=== PATIENT | female | born 1970 | race African-American/Black ===

== ENCOUNTER 2017-07-01 22:43 | Emergency (ER) | payer MEDICARE, OTHER ==
[2017-07-02 01:52] LABS: URINE PH (Dip) POC 7.5 (5.0-8.5)
[2017-07-02 01:52] LABS: URINE BLOOD (Dip) POC Trace-intact (NEGATIVE); URINE KETONES (Dip) POC 1+ (NEGATIVE); URINE LEUKOCYTE EST (Dip) POC 1+ (NEGATIVE); URINE NITRITE (Dip) POC Negative (NEGATIVE); URINE TOTAL PROTEIN POC Trace (NEGATIVE)
[2017-07-02 02:24] LABS: ADD MAN DIFF? NO
[2017-07-02 02:27] LABS: BASOPHILS % 0.4 % (0.0-2.0); EOSINOPHILS # 0.2 10^3/ul (0.0-0.5); EOSINOPHILS % 1.9 % (0.0-7.0); HEMATOCRIT 40.8 % (37.0-47.0); HEMOGLOBIN 13.5 g/dl (12.0-16.0); LYMPHOCYTES # 3.7 10^3/ul (0.8-2.9); LYMPHOCYTES % 32.7 % (15.0-51.0); MEAN CORPUSCULAR HEMOGLOBIN 29.3 pg (29.0-33.0); MEAN CORPUSCULAR HGB CONC 33.1 g/dl (32.0-37.0); MEAN CORPUSCULAR VOLUME 88.7 fl (82.0-101.0); MEAN PLATELET VOLUME 9.7 fl (7.4-10.4); MONOCYTE # 0.7 10^3/ul (0.3-0.9); MONOCYTES % 6.4 % (0.0-11.0); NEUTROPHIL # 6.6 10^3/ul (1.6-7.5); NEUTROPHILS % 58.2 % (39.0-77.0); PLATELET COUNT 372 10^3/UL (140-415); RED CELL DISTRIBUTION WIDTH 12.5 % (11.5-14.5)
[2017-07-02 02:27] LABS: WHITE BLOOD COUNT 11.4 10^3/ul (4.8-10.8)
[2017-07-02 02:30] LABS: ADD UMIC YES; UR ASCORBIC ACID NEGATIVE (NEGATIVE); UR BILIRUBIN (Dip) NEGATIVE (NEGATIVE); UR BLOOD (Dip) NEGATIVE (NEGATIVE); UR CLARITY CLEAR (CLEAR); UR COLOR YELLOW (YELLOW); UR GLUCOSE (Dip) 3+ mg/dL (NEGATIVE); UR KETONES (Dip) TRACE mg/dL (NEGATIVE); UR LEUKOCYTE ESTERASE (Dip) 3+ Leu/ul (NEGATIVE); UR NITRITE (Dip) NEGATIVE (NEGATIVE); UR RBC 4 /HPF (0-5); UR SPECIFIC GRAVITY (Dip) 1.033 (1.003-1.030); UR SQUAMOUS EPITHELIAL CELL FEW /HPF (FEW); UR TOTAL PROTEIN (Dip) NEGATIVE (NEGATIVE); UR UROBILINOGEN (Dip) NEGATIVE (NEGATIVE); UR WBC 32 /HPF (0-5)
[2017-07-02] MEDS: AMOXICILLIN/CLAV 875 MG TAB PO (02:30)
[2017-07-02 02:33] LABS: AMPHETAMINE/METHAMPHETAMINE Positive (NEGATIVE); BARBITURATES Negative (NEGATIVE); BENZODIAZEPINES Negative (NEGATIVE); CANNABINOIDS Negative (NEGATIVE); COCAINE Negative (NEGATIVE); OPIATES Negative (NEGATIVE)
[2017-07-02 02:57] LABS: ALANINE AMINOTRANSFERASE 18 IU/L (13-69); ALBUMIN 4.4 g/dl (3.3-4.9); ALBUMIN/GLOBULIN RATIO 1.22; ALKALINE PHOSPHATASE 136 IU/L (42-121); ANION GAP 15 (8-16); ASPARTATE AMINO TRANSFERASE 16 IU/L (15-46); BILIRUBIN,INDIRECT 0.2 mg/dl (0-1.1); BILIRUBIN,TOTAL 0.2 mg/dl (0.2-1.3); BLOOD UREA NITROGEN 8 mg/dl (7-20); CALCIUM 9.5 mg/dl (8.4-10.2); CARBON DIOXIDE 32 mmol/L (21-31); CHLORIDE 96 mmol/L (97-110); CREATININE 0.59 mg/dl (0.44-1.00); ETHANOL < 10.0 mg/dl; POTASSIUM 4.3 mmol/L (3.5-5.1); SODIUM 139 mmol/L (135-144)
[2017-07-02 03:04] LABS: GLUCOSE 447 mg/dl (70-220)
[2017-07-02] MEDS: INSULIN LISPRO 100 UNIT/ML VIAL SC (03:58)
[2017-07-02] MEDS: LORAZEPAM 1 MG TAB PO (06:21)
[2017-07-02] MEDS: HALOPERIDOL 5 MG TAB PO (06:21)
== END 2017-07-02 08:18 | disposition home or self-care (01) ==
LOC: E/R 22:43
DX: K02.9 Dental caries, unspecified (principal); F88 Other disorders of psychological development; E11.65 Type 2 diabetes mellitus with hyperglycemia; Z79.4 Long term (current) use of insulin; Z79.84 Long term (current) use of oral hypoglycemic drugs; Z87.891 Personal history of nicotine dependence
CPT/HCPCS: 36415; 80053; 80306; 80307; 81001; 81003; 81025; 82962; 85025; 96372; 99284-25

== ENCOUNTER 2017-07-13 11:57 | Emergency (ER) | payer MEDICARE, OTHER ==
[2017-07-13 12:42] LABS: URINE BLOOD (Dip) POC Negative (NEGATIVE); URINE KETONES (Dip) POC Negative (NEGATIVE); URINE LEUKOCYTE EST (Dip) POC Negative (NEGATIVE); URINE NITRITE (Dip) POC Negative (NEGATIVE); URINE TOTAL PROTEIN POC Negative (NEGATIVE)
[2017-07-13 12:42] LABS: URINE PH (Dip) POC 5.5 (5.0-8.5)
[2017-07-13 12:52] LABS: ADD MAN DIFF? NO
[2017-07-13 12:54] LABS: WHITE BLOOD COUNT 7.4 10^3/ul (4.8-10.8)
[2017-07-13 12:54] LABS: BASOPHILS % 0.3 % (0.0-2.0); EOSINOPHILS # 0.1 10^3/ul (0.0-0.5); EOSINOPHILS % 1.6 % (0.0-7.0); HEMATOCRIT 42.7 % (37.0-47.0); LYMPHOCYTES # 2.6 10^3/ul (0.8-2.9); MEAN CORPUSCULAR HEMOGLOBIN 29.1 pg (29.0-33.0); MEAN CORPUSCULAR HGB CONC 32.8 g/dl (32.0-37.0); MEAN CORPUSCULAR VOLUME 88.8 fl (82.0-101.0); MEAN PLATELET VOLUME 9.5 fl (7.4-10.4); MONOCYTE # 0.4 10^3/ul (0.3-0.9); MONOCYTES % 5.7 % (0.0-11.0); NEUTROPHIL # 4.2 10^3/ul (1.6-7.5); NEUTROPHILS % 57.1 % (39.0-77.0); PLATELET COUNT 372 10^3/UL (140-415); RED BLOOD COUNT 4.81 10^6/ul (4.20-5.40); RED CELL DISTRIBUTION WIDTH 12.4 % (11.5-14.5)
[2017-07-13 13:04] LABS: ADD UMIC YES; UR ASCORBIC ACID NEGATIVE (NEGATIVE); UR BILIRUBIN (Dip) NEGATIVE (NEGATIVE); UR BLOOD (Dip) NEGATIVE (NEGATIVE); UR CLARITY CLEAR (CLEAR); UR COLOR STRAW (YELLOW); UR GLUCOSE (Dip) 3+ mg/dL (NEGATIVE); UR KETONES (Dip) NEGATIVE (NEGATIVE); UR LEUKOCYTE ESTERASE (Dip) 1+ Leu/ul (NEGATIVE); UR NITRITE (Dip) NEGATIVE (NEGATIVE); UR RBC 1 /HPF (0-5); UR SPECIFIC GRAVITY (Dip) 1.032 (1.003-1.030); UR SQUAMOUS EPITHELIAL CELL FEW /HPF (FEW); UR TOTAL PROTEIN (Dip) NEGATIVE (NEGATIVE); UR UROBILINOGEN (Dip) NEGATIVE (NEGATIVE); UR WBC 1 /HPF (0-5)
[2017-07-13 13:11] LABS: ACETAMINOPHEN < 10.0 ug/ml (10.0-30.0); ALANINE AMINOTRANSFERASE 19 IU/L (13-69); ALBUMIN 4.5 g/dl (3.3-4.9); ALBUMIN/GLOBULIN RATIO 1.32; ALKALINE PHOSPHATASE 127 IU/L (42-121); ANION GAP 15 (8-16); ASPARTATE AMINO TRANSFERASE 17 IU/L (15-46); BILIRUBIN,INDIRECT 0.4 mg/dl (0-1.1); BILIRUBIN,TOTAL 0.4 mg/dl (0.2-1.3); BLOOD UREA NITROGEN 10 mg/dl (7-20); CALCIUM 9.7 mg/dl (8.4-10.2); CARBON DIOXIDE 27 mmol/L (21-31); CHLORIDE 97 mmol/L (97-110); CREATININE 0.63 mg/dl (0.44-1.00); ETHANOL < 10.0 mg/dl; POTASSIUM 5.3 mmol/L (3.5-5.1); SALICYLATE < 1.0 mg/dl (5.0-30.0); SODIUM 134 mmol/L (135-144); TOTAL PROTEIN 7.9 g/dl (6.1-8.1)
[2017-07-13 13:14] LABS: GLUCOSE 595 mg/dl (70-220)
[2017-07-13 13:19] LABS: AMPHETAMINE/METHAMPHETAMINE Positive (NEGATIVE); BARBITURATES Negative (NEGATIVE); BENZODIAZEPINES Negative (NEGATIVE); CANNABINOIDS Negative (NEGATIVE); COCAINE Negative (NEGATIVE); OPIATES Negative (NEGATIVE)
[2017-07-13] MEDS: SOD CHLORIDE 0.9% 2,000 ML IV (14:03)
[2017-07-13 14:08] LABS: AADO2 Venous 73.2 mmHg; MODE ROOM AIR; MetHgb Venous 1.9 %; Sample Type Blood venous; Site OTHER; Venous COHb 0.8 %; Venous Fraction OxyHgb 19.2 %; Venous Oxygen Sat 19.7 mmHG (55.0-75.0); Venous Total Hemglobin 14.3 g/dl
[2017-07-13] MEDS: INSULIN LISPRO 100 UNIT/ML VIAL SC (20:38)
[2017-07-13 22:13] LABS: ANION GAP 11 (8-16); BLOOD UREA NITROGEN 10 mg/dl (7-20); CALCIUM 8.6 mg/dl (8.4-10.2); CARBON DIOXIDE 26 mmol/L (21-31); CHLORIDE 105 mmol/L (97-110); CREATININE 0.57 mg/dl (0.44-1.00); GLUCOSE 320 mg/dl (70-220); POTASSIUM 3.8 mmol/L (3.5-5.1); SODIUM 138 mmol/L (135-144)
[2017-07-13] MEDS: RISPERIDONE 0.25 MG TAB PO (23:03)
[2017-07-13] MEDS: LORAZEPAM 1 MG TAB PO (23:03)
[2017-07-14] MEDS: RISPERIDONE 0.25 MG TAB PO ×2 (09:40→20:58)
[2017-07-14] MEDS ORDERED: GLUCOSE GEL 15 GRAM TUBE PO ×2 (12:30)
[2017-07-14] MEDS ORDERED: DEXTROSE 50% 50 ML SYRINGE IV ×2 (12:30)
[2017-07-14] MEDS ORDERED: GLUCAGON 1 MG INJ IM (12:30)
[2017-07-14] MEDS ORDERED: GLUCOSE GEL 15 GRAM TUBE BUCCAL (12:30)
[2017-07-14] MEDS: INSULIN ASPART [NOVOLOG] 3 ML PEN SC ×5 (12:42→20:47)
[2017-07-15] MEDS: ACCU-CHEK XX (02:00)
== END 2017-07-15 08:39 ==
LOC: E/R 07-15 08:39
DX: E11.65 Type 2 diabetes mellitus with hyperglycemia (principal); F23 Brief psychotic disorder; Z59.0 Homelessness; Z79.4 Long term (current) use of insulin
CPT/HCPCS: 36415; 80048; 80053; 80307; 81001; 81003; 82803; 82962; 84702; 85025; 96360; 96361; 96372; 99285-25

== ENCOUNTER 2018-04-04 20:09 | Observation (INO) | payer MEDICARE, OTHER ==
[2018-04-04 22:48] LABS: ADD MAN DIFF? NO
[2018-04-04 22:51] LABS: BASOPHILS % 0.5 % (0.0-2.0); EOSINOPHILS # 0.2 10^3/ul (0.0-0.5); EOSINOPHILS % 2.1 % (0.0-7.0); HEMATOCRIT 44.3 % (37.0-47.0); HEMOGLOBIN 14.4 g/dl (12.0-16.0); LYMPHOCYTES # 2.7 10^3/ul (0.8-2.9); LYMPHOCYTES % 33.7 % (15.0-51.0); MEAN CORPUSCULAR HEMOGLOBIN 29.5 pg (29.0-33.0); MEAN CORPUSCULAR HGB CONC 32.5 g/dl (32.0-37.0); MEAN CORPUSCULAR VOLUME 90.8 fl (82.0-101.0); MEAN PLATELET VOLUME 9.3 fl (7.4-10.4); MONOCYTE # 0.4 10^3/ul (0.3-0.9); MONOCYTES % 5.4 % (0.0-11.0); NEUTROPHIL # 4.6 10^3/ul (1.6-7.5); NEUTROPHILS % 57.8 % (39.0-77.0); PLATELET COUNT 376 10^3/UL (140-415); RED BLOOD COUNT 4.88 10^6/ul (4.20-5.40); RED CELL DISTRIBUTION WIDTH 11.8 % (11.5-14.5)
[2018-04-04 22:53] LABS: ADD UMIC NO; UR ASCORBIC ACID NEGATIVE (NEGATIVE); UR BILIRUBIN (Dip) NEGATIVE (NEGATIVE); UR BLOOD (Dip) NEGATIVE (NEGATIVE); UR CLARITY CLEAR (CLEAR); UR COLOR STRAW (YELLOW); UR GLUCOSE (Dip) 3+ mg/dL (NEGATIVE); UR KETONES (Dip) TRACE mg/dL (NEGATIVE); UR LEUKOCYTE ESTERASE (Dip) NEGATIVE Leu/ul (NEGATIVE); UR NITRITE (Dip) NEGATIVE (NEGATIVE); UR SPECIFIC GRAVITY (Dip) 1.029 (1.003-1.030); UR TOTAL PROTEIN (Dip) NEGATIVE (NEGATIVE); UR UROBILINOGEN (Dip) NEGATIVE (NEGATIVE)
[2018-04-04 22:58] LABS: ANION GAP 11 (5-13); BLOOD UREA NITROGEN 7 mg/dl (7-20); CALCIUM 9.7 mg/dl (8.4-10.2); CARBON DIOXIDE 30 mmol/L (21-31); CHLORIDE 89 mmol/L (97-110); CREATININE 0.55 mg/dl (0.44-1.00); Estimated GFR > 60 mL/min (>60); MAGNESIUM 1.9 mg/dl (1.7-2.5); POTASSIUM 4.8 mmol/L (3.5-5.1); SODIUM 130 mmol/L (135-144)
[2018-04-04] MEDS: SOD CHLORIDE 0.9% 680 ML IV (22:59)
[2018-04-04 23:00] LABS: MODE ROOM AIR; MetHgb Venous 0.3 %; Sample Type Blood venous; Site VENOUS LINE; Venous COHb 5.2 %; Venous Fraction OxyHgb 82.7 %; Venous Oxygen Sat 87.5 mmHG (55.0-75.0); Venous Total Hemglobin 14.1 g/dl
[2018-04-04 23:18] LABS: ETHANOL < 10.0 mg/dl (0-0)
[2018-04-04 23:22] LABS: GLUCOSE 802 mg/dl (70-220)
[2018-04-04 23:44] LABS: BARBITURATES Negative (NEGATIVE); BENZODIAZEPINES Negative (NEGATIVE); CANNABINOIDS Negative (NEGATIVE); COCAINE Negative (NEGATIVE); OPIATES Negative (NEGATIVE)
[2018-04-04] MEDS ORDERED: GLUCAGON 1 MG INJ IM (23:45)
[2018-04-04] MEDS ORDERED: GLUCOSE GEL 15 GRAM TUBE PO ×2 (23:45)
[2018-04-04] MEDS ORDERED: DEXTROSE 50% 50 ML SYRINGE IV ×2 (23:45)
[2018-04-04] MEDS ORDERED: GLUCOSE GEL 15 GRAM TUBE BUCCAL (23:45)
[2018-04-04 23:55] LABS: AMPHETAMINE/METHAMPHETAMINE POSITIVE (NEGATIVE)
[2018-04-05] MEDS ORDERED: NACL 0.9% 3 ML SYG IV (00:30)
[2018-04-05] MEDS ORDERED: INSULIN GLARGINE [LANTus] (100 UNITS/ML) SYG SC (00:30)
[2018-04-05] MEDS ORDERED: IBUPROFEN 600 MG TAB PO (00:30)
[2018-04-05] MEDS ORDERED: INSULIN LISPRO 100 UNIT/ML VIAL SC (00:30)
[2018-04-05] MEDS ORDERED: INSULIN REGULAR, HUMAN 100 UNIT/1 ML 3ML VIAL SC (00:30)
[2018-04-05] MEDS: INSULIN GLARGINE [LANTus] (100 UNITS/ML) SYG SC (00:39)
[2018-04-05] MEDS: INSULIN REGULAR, HUMAN 100 UNIT/1 ML 3ML VIAL IVP (00:42)
[2018-04-05] MEDS: INSULIN REGULAR, HUMAN 100 UNIT/1 ML 3ML VIAL IV (01:40)
[2018-04-05] MEDS: ACCU-CHEK XX (02:10)
[2018-04-05 07:07] LABS: ANION GAP 4 (5-13); BLOOD UREA NITROGEN 5 mg/dl (7-20); CARBON DIOXIDE 34 mmol/L (21-31); CHLORIDE 99 mmol/L (97-110); CREATININE 0.44 mg/dl (0.44-1.00); Estimated GFR > 60 mL/min (>60); GLUCOSE 347 mg/dl (70-220); POTASSIUM 3.7 mmol/L (3.5-5.1); SODIUM 137 mmol/L (135-144)
[2018-04-05] MEDS ORDERED: metFORMIN 500 MG TAB PO (08:00)
[2018-04-05] MEDS: INSULIN ASPART [NOVOLOG] 3 ML PEN SC ×2 (08:26)
[2018-04-05] MEDS: metFORMIN 500 MG TAB PO (09:23)
[2018-04-05] MEDS: FLUOXETINE 20 MG CAP PO (09:24)
[2018-04-05] MEDS: LISINOPRIL 5 MG TAB PO (09:25)
[2018-04-05] MEDS: HEPARIN 5,000 UNIT/1 ML VIAL SC (09:34)
[2018-04-05] MEDS ORDERED: MONTELUKAST 10 MG TAB PO (21:00)
== END 2018-04-05 12:42 | disposition home or self-care (01) ==
LOC: 6WM 23:32 → E/R 20:09
PROVIDERS: Internal Medicine
DX: E11.65 Type 2 diabetes mellitus with hyperglycemia (principal); E11.00 Type 2 diabetes mellitus with hyperosmolarity without nonketotic hyperglycemic-hyperosmolar coma (NKHHC); Z79.4 Long term (current) use of insulin; F15.10 Other stimulant abuse, uncomplicated; K02.9 Dental caries, unspecified; Z59.0 Homelessness; F29 Unspecified psychosis not due to a substance or known physiological condition
CPT/HCPCS: 36415; 80048; 80307; 81003; 82803; 82962; 83036; 83735; 84100; 84702; 85025; 99285-25; G0378

== ENCOUNTER 2018-06-24 16:39 | Inpatient (IN) | payer MEDICARE, OTHER ==
[2018-06-24] MEDS: SODIUM CHLORIDE 0.9% 1L BAG IV* (17:25)
[2018-06-24 17:26] LABS: HEMATOCRIT 34.9 % (37.0-47.0); HEMOGLOBIN 10.9 g/dl (12.0-16.0); MEAN CORPUSCULAR HEMOGLOBIN 28.5 pg (29.0-33.0); MEAN CORPUSCULAR HGB CONC 31.2 g/dl (32.0-37.0); MEAN CORPUSCULAR VOLUME 91.4 fl (82.0-101.0); PLATELET COUNT 657 10^3/UL (140-415); RED BLOOD COUNT 3.82 10^6/ul (4.20-5.40)
[2018-06-24 17:26] LABS: WHITE BLOOD COUNT 12.6 10^3/ul (4.8-10.8)
[2018-06-24] MEDS: ACETAMINOPHEN 325 MG TAB PO (17:26)
[2018-06-24 17:35] LABS: ADD MAN DIFF? YES
[2018-06-24 17:45] LABS: INR 1.03; PROTIME 13.6 Sec (11.9-14.9); PT RATIO 1.1
[2018-06-24 17:46] LABS: PARTIAL THROMBOPLASTIN TIME 28.4 Sec (23.0-35.0)
[2018-06-24 17:48] LABS: ALANINE AMINOTRANSFERASE 14 IU/L (13-69); ALBUMIN 3.6 g/dl (3.3-4.9); ALBUMIN/GLOBULIN RATIO 1.05; ALKALINE PHOSPHATASE 144 IU/L (42-121); ANION GAP 13 (5-13); ASPARTATE AMINO TRANSFERASE 16 IU/L (15-46); BILIRUBIN,INDIRECT 0.1 mg/dl (0-1.1); BILIRUBIN,TOTAL 0.1 mg/dl (0.2-1.3); BLOOD UREA NITROGEN 10 mg/dl (7-20); CALCIUM 9.1 mg/dl (8.4-10.2); CARBON DIOXIDE 25 mmol/L (21-31); CHLORIDE 91 mmol/L (97-110); CREATININE 0.51 mg/dl (0.44-1.00); Estimated GFR > 60 mL/min (>60); POTASSIUM 4.8 mmol/L (3.5-5.1); SODIUM 129 mmol/L (135-144)
[2018-06-24 17:59] LABS: TROPONIN-I < 0.012 ng/ml (0.000-0.120)
[2018-06-24 18:03] LABS: GLUCOSE 934 mg/dl (70-220)
[2018-06-24] MEDS ORDERED: DEXTROSE 50% 50 ML SYRINGE IV ×4 (18:30→20:00)
[2018-06-24] MEDS: CEFEPIME 2GM/50 ML (PMX) 50 ML IVPB (18:56)
[2018-06-24 18:57] LABS: BAND NEUTROPHILS #M 0.1 10^3/ul (0.0-0.6); BAND NEUTROPHILS % (M) 1 % (0-4); LYMPHOCYTES #M 1.5 10^3/ul (0.8-2.9); LYMPHOCYTES % (M) 12 % (15-51); MONOCYTE #M 1.1 10^3/ul (0.3-0.9); MONOCYTES % (M) 9 % (0-11); PLATELET ESTIMATE INCREASED; SEG NEUT #M 9.8 10^3/ul (1.6-7.5); SEGMENTED NEUTROPHILS (M) % 78 % (39-77); SMUDGE%M 1 % (0-0)
[2018-06-24] MEDS: ACCU-CHEK XX ×8 (19:00→23:17)
[2018-06-24] MEDS ORDERED: SOD CHLORIDE 0.9% 1,000 ML IV (19:34)
[2018-06-24] MEDS ORDERED: D10/0.45% NACL + KCL 30 MEQ 1,000 ML IV (19:34)
[2018-06-24] MEDS ORDERED: NS + KCL 30 MEQ 1,000 ML IV (19:34)
[2018-06-24] MEDS ORDERED: D10/0.45% NACL + KCL 40 MEQ 1,000 ML IV (19:34)
[2018-06-24] MEDS ORDERED: NS + KCL 40 MEQ 1,000 ML IV (19:34)
[2018-06-24] MEDS ORDERED: DEXTROSE 10%/0.45% NACL 1,000 ML IV (19:34)
[2018-06-24] MEDS: VANCOMYCIN 1 GM (PMX) 250 ML IVPB (19:42)
[2018-06-24] MEDS ORDERED: ONDANSETRON 4 MG INJ IV (20:00)
[2018-06-24] MEDS ORDERED: morphine 2 MG INJ IV (20:00)
[2018-06-24] MEDS ORDERED: NACL 0.9% 3 ML SYG IV (20:00)
[2018-06-24] MEDS ORDERED: hydrALAzine 20 MG INJ IV (20:00)
[2018-06-24] MEDS ORDERED: ACETAMINOPHEN 325 MG TAB PO (20:00)
[2018-06-24] MEDS ORDERED: NITROGLYCERIN (SL) 0.4 MG TAB SL (20:00)
[2018-06-24] MEDS ORDERED: HYDROCODONE/APAP (5/325) TAB PO (20:00)
[2018-06-24] MEDS ORDERED: LORAZEPAM 2 MG INJ IV (20:00)
[2018-06-24] MEDS ORDERED: ALBUTEROL/IPRATROPIUM (NEB) 3 ML AMP HHN (20:00)
[2018-06-24] MEDS ORDERED: MAGNESIUM HYDROXIDE 30ML CUP PO (20:00)
[2018-06-24] MEDS ORDERED: INSULIN REGULAR, HUMAN 100 UNIT in SOD CHLORIDE 0.9% 100 ML IV (20:00)
[2018-06-24] MEDS: INSULIN HUMAN REGULAR 100 UNIT in SOD CHLORIDE 0.9% 99 ML IV (20:02)
[2018-06-24] MEDS: SOD CHLORIDE 0.9% 1,000 ML IV (20:25)
[2018-06-24 20:50] LABS: ADD UMIC NO; UR ASCORBIC ACID NEGATIVE (NEGATIVE); UR BILIRUBIN (Dip) NEGATIVE (NEGATIVE); UR BLOOD (Dip) NEGATIVE (NEGATIVE); UR CLARITY CLEAR (CLEAR); UR COLOR COLORLESS (YELLOW); UR GLUCOSE (Dip) 3+ mg/dL (NEGATIVE); UR KETONES (Dip) NEGATIVE (NEGATIVE); UR LEUKOCYTE ESTERASE (Dip) NEGATIVE Leu/ul (NEGATIVE); UR NITRITE (Dip) NEGATIVE (NEGATIVE); UR SPECIFIC GRAVITY (Dip) 1.027 (1.003-1.030); UR TOTAL PROTEIN (Dip) NEGATIVE (NEGATIVE); UR UROBILINOGEN (Dip) NEGATIVE (NEGATIVE)
[2018-06-24 20:55] LABS: LACTIC ACID 0.9 mmol/L (0.5-2.0)
[2018-06-24 20:59] LABS: GLUCOSE 683 mg/dl (70-220)
[2018-06-24] MEDS: MONTELUKAST 10 MG TAB PO (21:00)
[2018-06-24 22:33] LABS: FREE T4 (FREE THYROXINE) 1.38 ng/dl (0.64-1.79)
[2018-06-25] MEDS: ACCU-CHEK XX ×5 (01:31→05:56)
[2018-06-25] MEDS: INSULIN HUMAN REGULAR 100 UNIT in SOD CHLORIDE 0.9% 99 ML IV (06:00)
[2018-06-25] MEDS: HEPARIN 5,000 UNIT/1 ML VIAL SC ×3 (06:05→20:44)
[2018-06-25] MEDS: SOD CHLORIDE 0.9% 1,000 ML IV ×3 (06:05→20:27)
[2018-06-25] MEDS: INSULIN ASPART [NOVOLOG] 3 ML PEN SC ×6 (06:30→20:43)
[2018-06-25] MEDS ORDERED: INSULIN ASPART [NOVOLOG] 3 ML PEN SC ×3 (07:00→18:00)
[2018-06-25 08:02] LABS: ADD MAN DIFF? NO
[2018-06-25 08:04] LABS: BASOPHILS % 0.3 % (0.0-2.0); EOSINOPHILS # 0.2 10^3/ul (0.0-0.5); EOSINOPHILS % 1.3 % (0.0-7.0); HEMATOCRIT 33.9 % (37.0-47.0); LYMPHOCYTES # 2.6 10^3/ul (0.8-2.9); LYMPHOCYTES % 23.2 % (15.0-51.0); MEAN CORPUSCULAR HEMOGLOBIN 28.8 pg (29.0-33.0); MEAN CORPUSCULAR HGB CONC 32.4 g/dl (32.0-37.0); MEAN CORPUSCULAR VOLUME 88.7 fl (82.0-101.0); MEAN PLATELET VOLUME 8.5 fl (7.4-10.4); MONOCYTE # 0.7 10^3/ul (0.3-0.9); MONOCYTES % 5.9 % (0.0-11.0); NEUTROPHIL # 7.6 10^3/ul (1.6-7.5); NEUTROPHILS % 67.5 % (39.0-77.0); PLATELET COUNT 664 10^3/UL (140-415); RED BLOOD COUNT 3.82 10^6/ul (4.20-5.40); RED CELL DISTRIBUTION WIDTH 11.9 % (11.5-14.5)
[2018-06-25 08:04] LABS: WHITE BLOOD COUNT 11.3 10^3/ul (4.8-10.8)
[2018-06-25 08:24] LABS: CHOL/HDL RATIO 2.7 RATIO; HDL CHOLESTEROL 40 mg/dl (34-88); LDL CHOLESTEROL,CALCULATED 58 mg/dl; TRIGLYCERIDES 56 mg/dl (0-149)
[2018-06-25 08:24] LABS: CHOLESTEROL 109 mg/dl (100-200)
[2018-06-25 08:27] LABS: ANION GAP 6 (5-13); BLOOD UREA NITROGEN 8 mg/dl (7-20); CALCIUM 8.6 mg/dl (8.4-10.2); CARBON DIOXIDE 29 mmol/L (21-31); CHLORIDE 105 mmol/L (97-110); CREATININE 0.35 mg/dl (0.44-1.00); Estimated GFR > 60 mL/min (>60); GLUCOSE 160 mg/dl (70-220); MAGNESIUM 2.1 mg/dl (1.7-2.5); PHOSPHORUS 3.2 mg/dl (2.5-4.9); POTASSIUM 3.9 mmol/L (3.5-5.1); SODIUM 140 mmol/L (135-144)
[2018-06-25] MEDS ORDERED: INSULIN GLARGINE [LANTus] (100 UNITS/ML) SYG SC ×2 (09:00→20:00)
[2018-06-25] MEDS: FLUOXETINE 20 MG CAP PO (10:19)
[2018-06-25] MEDS ORDERED: GLUCOSE GEL 15 GRAM TUBE PO ×2 (11:30)
[2018-06-25] MEDS ORDERED: DEXTROSE 50% 50 ML SYRINGE IV ×2 (11:30)
[2018-06-25] MEDS ORDERED: GLUCOSE GEL 15 GRAM TUBE BUCCAL (11:30)
[2018-06-25] MEDS ORDERED: GLUCAGON 1 MG INJ IM (11:30)
[2018-06-25] MEDS: CEFTRIAXONE 1 GM/50 ML (PMX) 50 ML IVPB (14:52)
[2018-06-25] MEDS: AZITHROMYCIN 500MG/NS (PMX) 250 ML IVPB (16:04)
[2018-06-25] MEDS: metFORMIN 500 MG TAB PO (17:38)
[2018-06-25] MEDS: MONTELUKAST 10 MG TAB PO (20:28)
[2018-06-25] MEDS: QUETIAPINE 25 MG TAB PO (20:28)
[2018-06-25] MEDS: INSULIN GLARGINE [LANTus] (100 UNITS/ML) SYG SC (20:42)
[2018-06-26] MEDS ORDERED: ACCU-CHEK XX (02:00)
[2018-06-26] MEDS: SOD CHLORIDE 0.9% 1,000 ML IV ×3 (05:34→19:22)
[2018-06-26 06:01] LABS: ADD MAN DIFF? NO
[2018-06-26 06:11] LABS: WHITE BLOOD COUNT 11.1 10^3/ul (4.8-10.8)
[2018-06-26 06:11] LABS: BASOPHILS % 0.4 % (0.0-2.0); EOSINOPHILS # 0.1 10^3/ul (0.0-0.5); EOSINOPHILS % 0.7 % (0.0-7.0); HEMATOCRIT 35.7 % (37.0-47.0); HEMOGLOBIN 11.4 g/dl (12.0-16.0); LYMPHOCYTES # 2.6 10^3/ul (0.8-2.9); LYMPHOCYTES % 23.4 % (15.0-51.0); MEAN CORPUSCULAR HEMOGLOBIN 28.5 pg (29.0-33.0); MEAN CORPUSCULAR HGB CONC 31.9 g/dl (32.0-37.0); MEAN CORPUSCULAR VOLUME 89.3 fl (82.0-101.0); MEAN PLATELET VOLUME 8.7 fl (7.4-10.4); MONOCYTE # 0.5 10^3/ul (0.3-0.9); MONOCYTES % 4.3 % (0.0-11.0); NEUTROPHIL # 7.7 10^3/ul (1.6-7.5); NEUTROPHILS % 69.1 % (39.0-77.0); PLATELET COUNT 708 10^3/UL (140-415); RED CELL DISTRIBUTION WIDTH 12.2 % (11.5-14.5)
[2018-06-26 06:34] LABS: ANION GAP 4 (5-13); BLOOD UREA NITROGEN 13 mg/dl (7-20); CALCIUM 8.4 mg/dl (8.4-10.2); CARBON DIOXIDE 28 mmol/L (21-31); CHLORIDE 106 mmol/L (97-110); Estimated GFR > 60 mL/min (>60); GLUCOSE 289 mg/dl (70-220); POTASSIUM 4.6 mmol/L (3.5-5.1); SODIUM 138 mmol/L (135-144)
[2018-06-26 06:54] LABS: PROCALCITONIN 0.04 ng/mL (0.00-0.10)
[2018-06-26] MEDS ORDERED: INSULIN ASPART [NOVOLOG] 3 ML PEN SC (08:00)
[2018-06-26] MEDS: metFORMIN 500 MG TAB PO ×2 (08:22→17:30)
[2018-06-26] MEDS: INSULIN ASPART [NOVOLOG] 3 ML PEN SC ×7 (08:23→21:00)
[2018-06-26] MEDS: HEPARIN 5,000 UNIT/1 ML VIAL SC ×2 (08:27→21:32)
[2018-06-26] MEDS: FLUOXETINE 20 MG CAP PO (08:27)
[2018-06-26] MEDS: QUETIAPINE 25 MG TAB PO ×2 (08:29→21:23)
[2018-06-26] MEDS: CEFTRIAXONE 1 GM/50 ML (PMX) 50 ML IVPB (14:52)
[2018-06-26 15:38] LABS: BENZODIAZEPINES Negative (NEGATIVE); CANNABINOIDS Negative (NEGATIVE)
[2018-06-26 16:07] LABS: AMPHETAMINE/METHAMPHETAMINE Positive (NEGATIVE)
[2018-06-26 16:09] LABS: BARBITURATES NEG (NEGATIVE); COCAINE NEG (NEGATIVE); OPIATES NEG (NEGATIVE)
[2018-06-26] MEDS: AZITHROMYCIN 500MG/NS (PMX) 250 ML IVPB (16:21)
[2018-06-26] MEDS: DIVALPROEX (EC) 250 MG TAB PO (21:23)
[2018-06-26] MEDS: MONTELUKAST 10 MG TAB PO (21:23)
[2018-06-26] MEDS: INSULIN GLARGINE [LANTus] (100 UNITS/ML) SYG SC (21:31)
[2018-06-27] MEDS: SOD CHLORIDE 0.9% 1,000 ML IV ×3 (03:34→17:22)
[2018-06-27 06:05] LABS: ADD MAN DIFF? NO
[2018-06-27 06:10] LABS: BASOPHIL # 0.1 10^3/ul (0.0-0.1); BASOPHILS % 0.6 % (0.0-2.0); EOSINOPHILS # 0.1 10^3/ul (0.0-0.5); EOSINOPHILS % 0.9 % (0.0-7.0); HEMATOCRIT 36.8 % (37.0-47.0); HEMOGLOBIN 11.6 g/dl (12.0-16.0); LYMPHOCYTES # 2.5 10^3/ul (0.8-2.9); LYMPHOCYTES % 22.5 % (15.0-51.0); MEAN CORPUSCULAR HEMOGLOBIN 28.4 pg (29.0-33.0); MEAN CORPUSCULAR HGB CONC 31.5 g/dl (32.0-37.0); MEAN CORPUSCULAR VOLUME 90.2 fl (82.0-101.0); MEAN PLATELET VOLUME 8.4 fl (7.4-10.4); MONOCYTE # 0.6 10^3/ul (0.3-0.9); MONOCYTES % 5.1 % (0.0-11.0); NEUTROPHIL # 7.6 10^3/ul (1.6-7.5); PLATELET COUNT 722 10^3/UL (140-415); RED BLOOD COUNT 4.08 10^6/ul (4.20-5.40); RED CELL DISTRIBUTION WIDTH 12.1 % (11.5-14.5)
[2018-06-27 06:10] LABS: WHITE BLOOD COUNT 11.2 10^3/ul (4.8-10.8)
[2018-06-27 06:34] LABS: ANION GAP 5 (5-13); BLOOD UREA NITROGEN 12 mg/dl (7-20); CALCIUM 8.9 mg/dl (8.4-10.2); CARBON DIOXIDE 28 mmol/L (21-31); CHLORIDE 105 mmol/L (97-110); CREATININE 0.53 mg/dl (0.44-1.00); Estimated GFR > 60 mL/min (>60); GLUCOSE 167 mg/dl (70-220); POTASSIUM 4.7 mmol/L (3.5-5.1); SODIUM 138 mmol/L (135-144)
[2018-06-27 06:37] LABS: PHOSPHORUS 4.6 mg/dl (2.5-4.9)
[2018-06-27 06:37] LABS: MAGNESIUM 1.8 mg/dl (1.7-2.5)
[2018-06-27] MEDS: metFORMIN 500 MG TAB PO ×2 (08:06→17:19)
[2018-06-27] MEDS: DIVALPROEX (EC) 250 MG TAB PO ×2 (08:06→21:03)
[2018-06-27] MEDS: FLUOXETINE 20 MG CAP PO (08:06)
[2018-06-27] MEDS: QUETIAPINE 25 MG TAB PO ×2 (08:06→21:01)
[2018-06-27] MEDS: INSULIN ASPART [NOVOLOG] 3 ML PEN SC ×7 (08:19→20:41)
[2018-06-27] MEDS: HEPARIN 5,000 UNIT/1 ML VIAL SC ×2 (08:19→21:01)
[2018-06-27] MEDS ORDERED: FLUOXETINE 20 MG CAP PO (09:00)
[2018-06-27] MEDS: CEFTRIAXONE 1 GM/50 ML (PMX) 50 ML IVPB (17:14)
[2018-06-27] MEDS: AZITHROMYCIN 500MG/NS (PMX) 250 ML IVPB (21:00)
[2018-06-27] MEDS: MONTELUKAST 10 MG TAB PO (21:01)
[2018-06-27] MEDS: INSULIN GLARGINE [LANTus] (100 UNITS/ML) SYG SC (21:02)
[2018-06-28 07:22] LABS: ADD MAN DIFF? NO
[2018-06-28 07:23] LABS: BASOPHILS % 0.4 % (0.0-2.0); EOSINOPHILS % 0.4 % (0.0-7.0); HEMATOCRIT 36.7 % (37.0-47.0); HEMOGLOBIN 11.9 g/dl (12.0-16.0); LYMPHOCYTES # 2.2 10^3/ul (0.8-2.9); LYMPHOCYTES % 23.8 % (15.0-51.0); MEAN CORPUSCULAR HEMOGLOBIN 28.8 pg (29.0-33.0); MEAN CORPUSCULAR HGB CONC 32.4 g/dl (32.0-37.0); MEAN CORPUSCULAR VOLUME 88.9 fl (82.0-101.0); MEAN PLATELET VOLUME 8.3 fl (7.4-10.4); MONOCYTE # 0.5 10^3/ul (0.3-0.9); MONOCYTES % 4.8 % (0.0-11.0); NEUTROPHIL # 6.5 10^3/ul (1.6-7.5); NEUTROPHILS % 68.5 % (39.0-77.0); RED BLOOD COUNT 4.13 10^6/ul (4.20-5.40); RED CELL DISTRIBUTION WIDTH 12.1 % (11.5-14.5)
[2018-06-28 07:23] LABS: WHITE BLOOD COUNT 9.4 10^3/ul (4.8-10.8)
[2018-06-28 07:38] LABS: PLATELET COUNT 770 10^3/UL (140-415)
[2018-06-28 07:49] LABS: PHOSPHORUS 5.1 mg/dl (2.5-4.9)
[2018-06-28 07:49] LABS: ANION GAP 6 (5-13); BLOOD UREA NITROGEN 11 mg/dl (7-20); CALCIUM 9.4 mg/dl (8.4-10.2); CARBON DIOXIDE 29 mmol/L (21-31); CHLORIDE 104 mmol/L (97-110); CREATININE 0.48 mg/dl (0.44-1.00); Estimated GFR > 60 mL/min (>60); GLUCOSE 119 mg/dl (70-220); MAGNESIUM 1.8 mg/dl (1.7-2.5); POTASSIUM 4.2 mmol/L (3.5-5.1); SODIUM 139 mmol/L (135-144)
[2018-06-28] MEDS: INSULIN ASPART [NOVOLOG] 3 ML PEN SC ×7 (08:00→20:34)
[2018-06-28] MEDS: metFORMIN 500 MG TAB PO ×2 (08:00→17:50)
[2018-06-28] MEDS: FLUOXETINE 20 MG CAP PO (08:47)
[2018-06-28] MEDS: HEPARIN 5,000 UNIT/1 ML VIAL SC ×2 (08:48→20:38)
[2018-06-28] MEDS: DIVALPROEX (EC) 250 MG TAB PO ×2 (08:48→20:36)
[2018-06-28] MEDS: QUETIAPINE 25 MG TAB PO ×2 (08:48→20:36)
[2018-06-28] MEDS: CEFTRIAXONE 1 GM/50 ML (PMX) 50 ML IVPB (15:00)
[2018-06-28] MEDS: AZITHROMYCIN 500MG/NS (PMX) 250 ML IVPB (16:28)
[2018-06-28] MEDS: MONTELUKAST 10 MG TAB PO (20:36)
[2018-06-28] MEDS: INSULIN GLARGINE [LANTus] (100 UNITS/ML) SYG SC (20:37)
[2018-06-29] MEDS: INSULIN ASPART [NOVOLOG] 3 ML PEN SC ×4 (07:57→12:04)
[2018-06-29] MEDS: metFORMIN 500 MG TAB PO (07:58)
[2018-06-29] MEDS: DOCUSATE SODIUM 100 MG CAP PO (09:21)
[2018-06-29] MEDS: HEPARIN 5,000 UNIT/1 ML VIAL SC (09:22)
[2018-06-29] MEDS: QUETIAPINE 25 MG TAB PO (09:22)
[2018-06-29] MEDS: DIVALPROEX (EC) 250 MG TAB PO (09:22)
[2018-06-29] MEDS: FLUOXETINE 20 MG CAP PO (09:22)
[2018-06-29] MEDS: CEFTRIAXONE 1 GM/50 ML (PMX) 50 ML IVPB (13:32)
[2018-06-30] MEDS ORDERED: AZITHROMYCIN 500 MG TAB PO (06:00)
== END 2018-06-29 14:00 | disposition home or self-care (01) | DRG 871 ==
LOC: E/R 16:39 → 6WM 18:29 → PP2 06-27 15:06
PROVIDERS: Hospitalist
DX: A41.9 Sepsis, unspecified organism (principal); J18.9 Pneumonia, unspecified organism; E87.1 Hypo-osmolality and hyponatremia; E87.2 Acidosis; E11.65 Type 2 diabetes mellitus with hyperglycemia; F20.9 Schizophrenia, unspecified; J45.909 Unspecified asthma, uncomplicated; I10 Essential (primary) hypertension; Z72.0 Tobacco use; F15.10 Other stimulant abuse, uncomplicated; Z59.0 Homelessness; Z79.4 Long term (current) use of insulin
CPT/HCPCS: 36415; 71045; 80048; 80053; 80061; 80307; 81003; 82947; 82962; 83036; 83605; 83735; 84100; 84145; 84439; 84443; 84484; 85025; 85610; 85730; 87040-91; 87086; 87400; 93005; 97161; 99285-25

== ENCOUNTER 2018-09-24 12:28 | Inpatient (IN) | payer MEDICARE, OTHER ==
[2018-09-24] MEDS ORDERED: NALOXONE 2 MG SYG (12:31)
[2018-09-24 12:44] LABS: ADD MAN DIFF? NO
[2018-09-24 12:49] LABS: BASOPHILS % 0.2 % (0.0-2.0); EOSINOPHILS # 0.2 10^3/ul (0.0-0.5); EOSINOPHILS % 1.8 % (0.0-7.0); HEMATOCRIT 36.9 % (37.0-47.0); HEMOGLOBIN 12.1 g/dl (12.0-16.0); LYMPHOCYTES # 3.2 10^3/ul (0.8-2.9); LYMPHOCYTES % 35.5 % (15.0-51.0); MEAN CORPUSCULAR HEMOGLOBIN 28.6 pg (29.0-33.0); MEAN CORPUSCULAR HGB CONC 32.8 g/dl (32.0-37.0); MEAN CORPUSCULAR VOLUME 87.2 fl (82.0-101.0); MEAN PLATELET VOLUME 9.4 fl (7.4-10.4); MONOCYTE # 0.5 10^3/ul (0.3-0.9); MONOCYTES % 5.8 % (0.0-11.0); NEUTROPHIL # 5.1 10^3/ul (1.6-7.5); NEUTROPHILS % 56.5 % (39.0-77.0); PLATELET COUNT 280 10^3/UL (140-415); RED BLOOD COUNT 4.23 10^6/ul (4.20-5.40); RED CELL DISTRIBUTION WIDTH 12.3 % (11.5-14.5)
[2018-09-24] MEDS: NALOXONE 2 MG SYG IV (13:01)
[2018-09-24] MEDS: SOD CHLORIDE 0.9% 1,910 ML IV (13:01)
[2018-09-24 13:07] LABS: AADO2 Arterial 4.8 mmHg (7.0-24.0); Allen Test ACCEPTAB; Arterial Base Excess 3.1 mmol/L (-3.0-3); Arterial Blood Gas Oxygen Sat 96.7 mmHG (95.0-98.0); Arterial COHb 0.7 % (0.0-3.0); Arterial Fraction of Oxyhgb 95.7 % (93.0-99.0); Arterial HCO3 28.6 mmol/L (22.0-26.0); Arterial MetHb 0.3 % (0.0-1.5); Arterial pCO2 47.4 mmhg (35-45); MODE ROOM AIR; Site Right Radial
[2018-09-24 13:08] LABS: ALANINE AMINOTRANSFERASE 19 IU/L (13-69); ALBUMIN 3.9 g/dl (3.3-4.9); ALKALINE PHOSPHATASE 104 IU/L (42-121); ANION GAP 6 (5-13); ASPARTATE AMINO TRANSFERASE 18 IU/L (15-46); BILIRUBIN,INDIRECT 0.4 mg/dl (0-1.1); BILIRUBIN,TOTAL 0.4 mg/dl (0.2-1.3); BLOOD UREA NITROGEN 6 mg/dl (7-20); CALCIUM 9.5 mg/dl (8.4-10.2); CARBON DIOXIDE 30 mmol/L (21-31); CHLORIDE 99 mmol/L (97-110); CREATINE KINASE 139 IU/L (23-200); CREATININE 0.53 mg/dl (0.44-1.00); Estimated GFR > 60 mL/min (>60); GLUCOSE 391 mg/dl (70-220); MAGNESIUM 1.8 mg/dl (1.7-2.5); POTASSIUM 4.2 mmol/L (3.5-5.1); SODIUM 135 mmol/L (135-144); TOTAL PROTEIN 6.9 g/dl (6.1-8.1)
[2018-09-24 13:09] LABS: ACETAMINOPHEN < 10.0 ug/ml (10.0-30.0); ETHANOL < 10.0 mg/dl (0-0); SALICYLATE < 1.0 mg/dl (5.0-30.0)
[2018-09-24 13:09] LABS: PHOSPHORUS 3.4 mg/dl (2.5-4.9)
[2018-09-24 13:13] LABS: INR 0.88; PT RATIO 0.9
[2018-09-24 13:14] LABS: PARTIAL THROMBOPLASTIN TIME 27.5 Sec (23.0-35.0); VALPROATE 97 ug/ml (50-100)
[2018-09-24 13:22] LABS: TROPONIN-I < 0.012 ng/ml (0.000-0.120)
[2018-09-24 14:12] LABS: ADD UMIC NO; UR ASCORBIC ACID NEGATIVE (NEGATIVE); UR BILIRUBIN (Dip) NEGATIVE (NEGATIVE); UR BLOOD (Dip) NEGATIVE (NEGATIVE); UR CLARITY CLEAR (CLEAR); UR COLOR YELLOW (YELLOW); UR GLUCOSE (Dip) 3+ mg/dL (NEGATIVE); UR KETONES (Dip) TRACE mg/dL (NEGATIVE); UR LEUKOCYTE ESTERASE (Dip) NEGATIVE Leu/ul (NEGATIVE); UR NITRITE (Dip) NEGATIVE (NEGATIVE); UR SPECIFIC GRAVITY (Dip) 1.037 (1.003-1.030); UR TOTAL PROTEIN (Dip) NEGATIVE (NEGATIVE); UR UROBILINOGEN (Dip) NEGATIVE (NEGATIVE)
[2018-09-24] MEDS: PIPER-TAZO 3.375 GM IV (PMX) 100 ML IVPB (14:52)
[2018-09-24] MEDS: SOD CHLORIDE 0.9% 1,000 ML IV ×2 (14:52→16:53)
[2018-09-24 14:59] LABS: BARBITURATES Negative (NEGATIVE); BENZODIAZEPINES Negative (NEGATIVE); CANNABINOIDS Negative (NEGATIVE); COCAINE Negative (NEGATIVE); OPIATES Negative (NEGATIVE)
[2018-09-24 15:08] LABS: AMPHETAMINE/METHAMPHETAMINE POSITIVE (NEGATIVE)
[2018-09-24 15:13] LABS: LACTIC ACID 1.1 mmol/L (0.5-2.0)
[2018-09-24] MEDS: OLANZAPINE (ODT) 5 MG TAB PO ×2 (17:00→20:24)
[2018-09-24] MEDS ORDERED: ONDANSETRON 4 MG INJ IV (17:00)
[2018-09-24] MEDS: INSULIN ASPART [NOVOLOG] 3 ML PEN SC ×3 (17:00→21:00)
[2018-09-24] MEDS ORDERED: NACL 0.9% 3 ML SYG IV (17:00)
[2018-09-24 19:21] LABS: LACTIC ACID 1.2 mmol/L (0.5-2.0)
[2018-09-24] MEDS ORDERED: NON-FORMULARY/PATIENT OWN MED ([Insulin Glargine] 20 UNITS) SC (20:00)
[2018-09-24] MEDS: GABAPENTIN 300 MG CAP PO (20:24)
[2018-09-24] MEDS: MONTELUKAST 10 MG TAB PO (21:00)
[2018-09-24] MEDS ORDERED: DIVALPROEX (EC) 500 MG TAB PO (21:00)
[2018-09-24] MEDS: VALPROATE INJ 500 MG in SOD CHLORIDE 0.9% 50 ML IVPB (21:39)
[2018-09-24] MEDS: INSULIN GLARGINE [LANTus] (100 UNITS/ML) SYG SC (21:44)
[2018-09-25] MEDS: SOD CHLORIDE 0.9% 1,000 ML IV ×2 (00:53→02:33)
[2018-09-25] MEDS: INSULIN ASPART [NOVOLOG] 3 ML PEN SC ×6 (01:00→16:58)
[2018-09-25] MEDS: ACCU-CHEK XX (01:32)
[2018-09-25] MEDS ORDERED: DEXTROSE 50% 50 ML SYRINGE (01:34)
[2018-09-25] MEDS: DEXTROSE 50% 50 ML SYRINGE IV ×2 (01:39→04:37)
[2018-09-25] MEDS ORDERED: GLUCOSE GEL 15 GRAM TUBE PO (02:00)
[2018-09-25] MEDS ORDERED: GLUCAGON 1 MG INJ IM (02:00)
[2018-09-25] MEDS ORDERED: DEXTROSE 50% 50 ML SYRINGE IV ×2 (02:00)
[2018-09-25] MEDS ORDERED: GLUCOSE GEL 15 GRAM TUBE BUCCAL (02:00)
[2018-09-25 04:40] LABS: ADD MAN DIFF? NO
[2018-09-25 04:46] LABS: BASOPHILS % 0.2 % (0.0-2.0); EOSINOPHILS # 0.1 10^3/ul (0.0-0.5); EOSINOPHILS % 0.8 % (0.0-7.0); HEMOGLOBIN 11.7 g/dl (12.0-16.0); LYMPHOCYTES # 1.8 10^3/ul (0.8-2.9); MEAN CORPUSCULAR HEMOGLOBIN 28.5 pg (29.0-33.0); MEAN CORPUSCULAR HGB CONC 31.6 g/dl (32.0-37.0); MEAN CORPUSCULAR VOLUME 90.2 fl (82.0-101.0); MEAN PLATELET VOLUME 8.8 fl (7.4-10.4); MONOCYTE # 0.4 10^3/ul (0.3-0.9); MONOCYTES % 5.8 % (0.0-11.0); NEUTROPHIL # 4.3 10^3/ul (1.6-7.5); NEUTROPHILS % 64.9 % (39.0-77.0); PLATELET COUNT 267 10^3/UL (140-415); RED CELL DISTRIBUTION WIDTH 12.4 % (11.5-14.5)
[2018-09-25 04:46] LABS: WHITE BLOOD COUNT 6.5 10^3/ul (4.8-10.8)
[2018-09-25 05:03] LABS: ANION GAP 1 (5-13); BLOOD UREA NITROGEN 6 mg/dl (7-20); CALCIUM 8.4 mg/dl (8.4-10.2); CARBON DIOXIDE 32 mmol/L (21-31); CHLORIDE 108 mmol/L (97-110); CREATININE 0.49 mg/dl (0.44-1.00); Estimated GFR > 60 mL/min (>60); GLUCOSE 58 mg/dl (70-220); MAGNESIUM 1.8 mg/dl (1.7-2.5); PHOSPHORUS 3.5 mg/dl (2.5-4.9); POTASSIUM 3.6 mmol/L (3.5-5.1); SODIUM 141 mmol/L (135-144)
[2018-09-25] MEDS: OLANZAPINE (ODT) 5 MG TAB PO ×4 (08:28→20:24)
[2018-09-25] MEDS: GABAPENTIN 300 MG CAP PO ×3 (08:28→20:23)
[2018-09-25] MEDS: LISINOPRIL 10 MG TAB PO (08:28)
[2018-09-25] MEDS: VALPROATE INJ 500 MG in SOD CHLORIDE 0.9% 50 ML IVPB ×2 (08:28→20:23)
[2018-09-25] MEDS: DULOXETINE 30 MG CAP DR PO (08:32)
[2018-09-25] MEDS: Insulin NOVOLOG SS MILD Algorithm (SS with meals and bedtime) SC ×2 (16:51→20:18)
[2018-09-25] MEDS ORDERED: INSULIN ASPART [NOVOLOG] 3 ML PEN SC (17:05)
[2018-09-25] MEDS: INSULIN GLARGINE [LANTus] (100 UNITS/ML) SYG SC (20:00)
[2018-09-25] MEDS: MONTELUKAST 10 MG TAB PO (20:23)
[2018-09-26] MEDS: ACCU-CHEK XX (01:18)
[2018-09-26] MEDS: GLUCOSE GEL 15 GRAM TUBE PO (02:56)
[2018-09-26 03:42] LABS: GLUCOSE 59 mg/dl (70-220)
[2018-09-26] MEDS: Insulin NOVOLOG SS MILD Algorithm (SS with meals and bedtime) SC ×4 (07:05→20:25)
[2018-09-26] MEDS: GABAPENTIN 300 MG CAP PO ×3 (08:39→20:20)
[2018-09-26] MEDS: DULOXETINE 30 MG CAP DR PO (08:39)
[2018-09-26] MEDS: OLANZAPINE (ODT) 5 MG TAB PO ×4 (08:39→20:19)
[2018-09-26] MEDS: DIVALPROEX (EC) 500 MG TAB PO ×2 (08:39→20:20)
[2018-09-26] MEDS: LISINOPRIL 10 MG TAB PO (08:40)
[2018-09-26] MEDS: MONTELUKAST 10 MG TAB PO (20:20)
[2018-09-26] MEDS: INSULIN GLARGINE [LANTus] (100 UNITS/ML) SYG SC (20:22)
[2018-09-27] MEDS: ACCU-CHEK XX (02:00)
[2018-09-27] MEDS: Insulin NOVOLOG SS MILD Algorithm (SS with meals and bedtime) SC ×4 (08:25→20:28)
[2018-09-27] MEDS: DULOXETINE 30 MG CAP DR PO (08:26)
[2018-09-27] MEDS: DIVALPROEX (EC) 500 MG TAB PO ×2 (08:26→20:28)
[2018-09-27] MEDS: GABAPENTIN 300 MG CAP PO ×3 (08:26→20:28)
[2018-09-27] MEDS: OLANZAPINE (ODT) 5 MG TAB PO ×4 (08:27→20:28)
[2018-09-27] MEDS: LISINOPRIL 10 MG TAB PO (08:27)
[2018-09-27] MEDS: MONTELUKAST 10 MG TAB PO (20:27)
[2018-09-27] MEDS: INSULIN GLARGINE [LANTus] (100 UNITS/ML) SYG SC (20:27)
[2018-09-28] MEDS: ACCU-CHEK XX (01:44)
[2018-09-28] MEDS: Insulin NOVOLOG SS MILD Algorithm (SS with meals and bedtime) SC ×2 (07:05→11:15)
[2018-09-28] MEDS: DIVALPROEX (EC) 500 MG TAB PO (08:47)
[2018-09-28] MEDS: DULOXETINE 30 MG CAP DR PO (08:47)
[2018-09-28] MEDS: LISINOPRIL 10 MG TAB PO (08:47)
[2018-09-28] MEDS: OLANZAPINE (ODT) 5 MG TAB PO (08:47)
[2018-09-28] MEDS: GABAPENTIN 300 MG CAP PO (08:47)
== END 2018-09-28 13:15 | disposition home or self-care (01) | DRG 639 ==
LOC: E/R 12:28 → MS3 09-25 22:55 → ICU 15:23
PROVIDERS: Internal Medicine
DX: E11.00 Type 2 diabetes mellitus with hyperosmolarity without nonketotic hyperglycemic-hyperosmolar coma (NKHHC) (principal); F20.9 Schizophrenia, unspecified; F15.10 Other stimulant abuse, uncomplicated; Z59.0 Homelessness; Z79.4 Long term (current) use of insulin
CPT/HCPCS: 36415; 36600; 70450; 71045; 72125; 80048; 80053; 80164; 80307; 81003; 82550; 82803; 82947; 82962; 83036; 83605; 83735; 84100; 84484; 85025; 85610; 85730; 87040-91; 87081; 87086; 93005; 96365; 96375; 99285-25